=== PATIENT | male | born 1995 | race Hispanic/Latino ===

== ENCOUNTER 2022-07-16 15:03 | Inpatient (IN) | payer OTHER ==
[2022-07-16] MEDS: MEPERIDINE HCL 25 MG/ML SYR ONE ×2 (10:25→20:25)
[2022-07-16 15:47] LABS: Hematocrit 36.5 % (39.6-49.0); Lymphocytes % 27.2 % (15.3-44.8); MCV 87.1 fL (80-100); MPV 7.4 fL (7.6-11.3); RBC Red Blood Cell Count 4.19 M/uL (4.33-5.43)
[2022-07-16 15:48] LABS: Urine Blood Negative (Negative); Urine Glucose Negative (Negative); Urine Protein Negative (Negative)
[2022-07-16 16:06] LABS: Albumin 3.4 g/dL (3.4-5.0); Bilirubin Total 0.3 mg/dL (0.2-1.0); Potassium 3.9 mmol/L (3.5-5.1); Protein, Total 8.3 g/dL (6.4-8.2)
[2022-07-16 16:12] LABS: Urine Mucus 1+ /HPF (None Seen); Urine RBC <5 /HPF (None Seen)
[2022-07-16] MEDS ORDERED: NA CHLORIDE 0.9% 1,000 ML ONE (16:12)
[2022-07-16] MEDS ORDERED: ONDANSETRON 4 MG/2 ML VIAL ONE ×3 (16:12→20:24)
--- NOTE | 2022-07-16 16:43 | RAD REPORT ---
EXAM DESCRIPTION: CT - Abdomen Pelvis W Contrast - 07/16/2022 4:31 pm CLINICAL HISTORY: Abdominal pain/right lower quadrant pain COMPARISON: none. TECHNIQUE: Computed axial tomography of the abdomen pelvis was obtained. 100 cc Isovue-300 was admin istered intravenously. Oral contrast was not requested which limits evaluation of bowel and appendix All CT scans are performed using dose optimization technique as appropriate and may include automated exposure control or mA/KV adjustment according to patient size. FINDINGS: The liver, spleen, pancreas, adrenal and kidneys appear unremarkable. There is no evidence of diverticulitis. The appendix extends medially from the cecum and is thickened. Stranding within adjacent fat. 3.7 kell timeter low-density mass is present within this region probably abscess. IMPRESSION: Patient likely has appendicitis with periappendiceal abscess
--- NOTE | 2022-07-16 16:54 | EDPHYS ---
Physician Documentation [facility] Name: Abrahan Ramírez Age: 26 yrs Sex: Male : 1995 Arrival Date: 07/16/2022 Time: 15:04 Bed 13 Private MD: ED Physician Hermila Wiggins HPI: 07/16 15:43 This 26 yrs old Male presents to ER via Ambulatory with complaints of kb Abdominal Pain, Nausea, Fever, Urinary Problem. 15:43 The patient presents with abdominal pain right lower quadrant. Onset: The kb symptoms/episode began/occurred 5 day(s) ago. The symptoms do not radiate. Associated signs and symptoms: Pertinent positives: fever, nausea. The symptoms are described as constant. Modifying factors: The symptoms are alleviated by nothing, the symptoms are aggravated by pressure. Severity of pain: At its worst the pain was moderate in the emergency department the pain has improved mildly. The patient has not experienced similar symptoms in the past. The patient has been recently seen by a physician: the patient's primary care provider, with similar presenting complaints, and was sent to the [facility] Emergency Department for further evaluation. Pt reports lower abd pain, nausea, fever up to 102, difficulty urinating, and chills since . States pain is a little better today, went to [facility] and was sent here to rule out appendicitis. Historical: - Allergies: 15:19 No Known Allergies; ph - PMHx: 15:19 None; ph - PSHx: 15:19 None; ph - Immunization history:: Adult Immunizations unknown. - Social history:: Smoking status: Patient reports the use of cigarette tobacco products, denies chronic smoking, but will smoke occasionally. ROS: 15:44 Respiratory: Negative for shortness of breath, cough, wheezing, and pleuritic chest kb pain. 15:44 Constitutional: Positive for chills, fever. 15:44 Abdomen/GI: Positive for abdominal pain, nausea. 15:44 : Positive for difficulty urinating. 15:44 All other systems are negative. Exam: 15:44 Constitutional: This is a well developed, well nourished patient who is awake, alert, kb and in no acute distress. Head/Face: Normocephalic, atraumatic. ENT: Moist Mucous membranes Cardiovascular: Regular rate and rhythm with a normal S1 and S2. No gallops, murmurs, or rubs. No pulse deficits. Respiratory: Respirations even and unlabored. No increased work of breathing. Talking in full sentences Skin: Warm, dry with normal turgor. Normal color. MS/ Extremity: Pulses equal, no cyanosis. Neurovascular intact. Full, normal range of motion. Neuro: Awake and alert, GCS 15, oriented to person, place, time, and situation. Moves all extremities. Normal gait. Psych: Awake, alert, with orientation to person, place and time. Behavior, mood, and affect are within normal limits. 15:44 Abdomen/GI: Inspection: abdomen appears normal, Bowel sounds: normal, in all quadrants, Palpation: soft, in all quadrants, moderate abdominal tenderness, in the right lower quadrant. Vital Signs: 15:13 BP 112 / 72; Pulse 79; Resp 19; Temp 99.4; Pulse Ox 100% on R/A; Weight 98.88 kg; ph Height 5 ft. 6 in. (167.64 cm); 16:00 BP 126 / 66; Pulse 84; Resp 17; Pulse Ox 99% on R/A; tp1 17:00 BP 104 / 65; Pulse 75; Resp 16; Pulse Ox 99% on R/A; tp1 15:13 Body Mass Index 35.19 (98.88 kg, 167.64 cm) ph Procedures: 15:42 Peripheral line: by aseptic technique a peripheral line was placed in the right antecubital vein. MDM: 15:30 Patient medically screened. 15:43 Data reviewed: vital signs, nurses notes. Data interpreted: Pulse oximetry: on room air kb is 100 %. Interpretation: normal. 16:47 Physician consultation: Luke Garcia MD was called at 16:47, regarding consult, kb patient's condition, awaiting callback. 16:52 Counseling: I had a detailed discussion with the patient and/or guardian regarding: the historical points, exam findings, and any diagnostic results supporting the discharge/admit diagnosis, lab results, radiology results, the need for further work-up and treatment in the hospital. Physician consultation: Luke Garcia MD was contacted at 16:52, regarding consult, patient's condition, and will see patient in OR. 07/16 15:30 Order name: CBC with Diff; Complete Time: 15:49 kb 07/16 15:30 Order name: CMP; Complete Time: 16:08 kb 07/16 15:30 Order name: Lipase; Complete Time: 16:08 kb 07/16 15:30 Order name: Urine Microscopic Only; Complete Time: 16:24 kb 07/16 15:48 Order name: Urine Dipstick-Ancillary; Complete Time: 15:49 EDMS 07/16 16:56 Order name: SARS RAPID kb 07/16 15:30 Order name: CT Abd/Pelvis - IV Contrast Only; Complete Time: 16:46 kb 07/16 15:30 Order name: IV Saline Lock; Complete Time: 15:52 kb 07/16 15:30 Order name: Labs collected and sent; Complete Time: 15:52 kb 07/16 15:30 Order name: Urine Dipstick-Ancillary (obtain specimen); Complete Time: 15:53 kb Administered Medications: 16:08 Drug: NS 0.9% 1000 ml Route: IV; Rate: 1 bolus; Site: right antecubital; tp1 17:28 Follow up: IV Status: Infusion continued upon admission tp1 16:09 Drug: Zofran (Ondansetron) 4 mg Route: IVP; Site: right antecubital; tp1 16:40 Follow up: Response: Nausea is decreased tp1 17:09 Drug: morphine 4 mg Route: IVP; Infused Over: 4 mins; Site: right antecubital; tp1 17:28 Follow up: Response: Medication administered at discharge. tp1 Disposition: 07/17 07:35 STAFF ATTESTATION: The patient's history, exam findings, diagnostics and a summary of sd2 any interventions or procedures was reviewed in detail with the ED YOCASTA. I confirm the diagnosis as documented by the YOCASTA and I agree with the care plan articulated in the disposition section with regards to our discussion of the patient's case. Hermila Wiggins MD. Disposition Summary: 07/16/22 16:53 Hospitalization Ordered Provider: Luke Garcia Condition: Stable kb Problem: new kb Symptoms: are unchanged kb Bed/Room Type: Standard kb Hospitalization Status: Inpatient Admission(07/16/22 17:19) kb Location: Telemetry/MedSurg (Inpatient)(07/16/22 17:19) kb Room Assignment: (07/16/22 17:19) kb Diagnosis - Acute appendicitis with localized peritonitis kb Forms: - Medication Reconciliation Form kb - SBAR form kb Signatures: Dispatcher [employer] EDCori Adan FNP-C FNP-Ckb Hall, Patricia RN RN Jannette Ricks RN RN tp1 Hermila Wiggins MD MD sd2 Corrections: (The following items were deleted from the chart) 07/16 17: 16:53 Observation kb kb 16:53 Operating Room kb kb 16:53 kb kb
--- NOTE | 2022-07-16 16:54 | ER ---
Nurse's Notes [facility] Name: Abrahan Ramírez Age: 26 yrs Sex: Male : 1995 Arrival Date: 07/16/2022 Time: 15:04 Bed 13 [facility] MD: Diagnosis: Acute appendicitis with localized peritonitis Presentation: 07/16 15:13 Chief complaint: Patient states: Cold sweats, R sided abdominal pain and difficulty ph urinating, started , fever w/ TMAX of 102. Coronavirus screen: Vaccine status: Patient reports receiving the 2nd dose of the covid vaccine. Ebola Screen: No symptoms or risks identified at this time. Initial Sepsis Screen: Does the patient meet any 2 criteria? No. Patient's initial sepsis screen is negative. Does the patient have a suspected source of infection? No. Patient's initial sepsis screen is negative. Risk Assessment: Do you want to hurt yourself or someone else? Patient reports no desire to harm self or others. Onset of symptoms was July 16, 2022. 15:13 Method Of Arrival: Ambulatory ph 15:13 Acuity: ISAAC 3 ph Historical: - Allergies: 15:19 No Known Allergies; ph - PMHx: 15:19 None; ph - PSHx: 15:19 None; ph - Immunization history:: Adult Immunizations unknown. - Social history:: Smoking status: Patient reports the use of cigarette tobacco products, denies chronic smoking, but will smoke occasionally. Screenin:00 Abuse screen: Denies threats or abuse. Denies injuries from another. Nutritional tp1 screening: No deficits noted. Tuberculosis screening: No symptoms or risk factors identified. Fall Risk No fall in past 12 months (0 pts). No secondary diagnosis (0 pts). IV access (20 points). Ambulatory Aid- None/Bed Rest/Nurse Assist (0 pts). Gait- Normal/Bed Rest/Wheelchair (0 pts) Mental Status- Oriented to own ability (0 pts). Assessment: 16:00 General: Appears in no apparent distress. uncomfortable, Behavior is calm, cooperative. tp1 Pain: Complains of pain in right lower quadrant Pain radiates to abdomen Pain currently is 5 out of 10 on a pain scale. Quality of pain is described as stabbing, Pain began 2-3 days ago. Is continuous. Neuro: Level of Consciousness is awake, alert, obeys commands, Oriented to person, place, time, situation, Reports headache mind fog . Cardiovascular: Patient's skin is warm and dry. Respiratory: Airway is patent Respiratory effort is even, unlabored. GI: Abdomen is flat, non-distended, Abd is soft Abd is non tender in right lower quadrant Reports anorexia, nausea, Patient currently denies diarrhea, vomiting. : Reports pain with urination. EENT: No signs and/or symptoms were reported regarding the EENT system. Derm: Skin is pink, warm \T\ dry. Musculoskeletal: Circulation, motion, and sensation intact. 17:00 Reassessment: Patient appears in no apparent distress at this time. Patient is alert, tp1 oriented x 3, equal unlabored respirations, skin warm/dry/pink. denies nausea. Vital Signs: 15:13 BP 112 / 72; Pulse 79; Resp 19; Temp 99.4; Pulse Ox 100% on R/A; Weight 98.88 kg; ph Height 5 ft. 6 in. (167.64 cm); 16:00 BP 126 / 66; Pulse 84; Resp 17; Pulse Ox 99% on R/A; tp1 17:00 BP 104 / 65; Pulse 75; Resp 16; Pulse Ox 99% on R/A; tp1 15:13 Body Mass Index 35.19 (98.88 kg, 167.64 cm) ph ED Course: 15:04 Patient arrived in ED. mr 15:08 [facility] kb 15:08 Hermila Wiggins MD is Attending Physician. kb 15:19 Triage completed. ph 15:19 Arm band placed on. ph 15:51 Jannette Ricks, [place] is Primary Nurse. tp1 15:53 Urine Microscopic Only Sent. dh3 16:00 Inserted saline lock: 20 gauge in right antecubital area, using aseptic technique. tp1 ,using aseptic technique. inserted by Yvonne DAVILA Blood collected. 16:10 Patient has correct armband on for positive identification. Bed in low position. Call tp1 light in reach. 16:33 CT Abd/Pelvis - IV Contrast Only In Process Unspecified. EDMS 16:53 Luke Garcia MD is Hospitalizing Provider. kb 17:26 No provider procedures requiring assistance completed. Patient admitted, IV remains in tp1 place. Administered Medications: 16:08 Drug: NS 0.9% 1000 ml Route: IV; Rate: 1 bolus; Site: right antecubital; tp1 17:28 Follow up: IV Status: Infusion continued upon admission tp1 16:09 Drug: Zofran (Ondansetron) 4 mg Route: IVP; Site: right antecubital; tp1 16:40 Follow up: Response: Nausea is decreased tp1 17:09 Drug: morphine 4 mg Route: IVP; Infused Over: 4 mins; Site: right antecubital; tp1 17:28 Follow up: Response: Medication administered at discharge. tp1 Medication: 17:27 VIS not applicable for this client. tp1 Outcome: 16:53 Decision to Hospitalize by Provider. kb 17:27 Admitted to OR accompanied by nurse, via wheelchair, Report called to OR nurse tp1 17:27 Condition: good 17:27 Discharge instructions given to patient, Instructed on the need for admit, Demonstrated understanding of instructions. 17:28 Patient left the ED. tp1 Signatures: Dispatcher [employer] EDMS Cori Tenorio, BLUEBERRY GROWER-C BLUEBERRY GROWER-Shania Abreu Elena Dsouza, RN RN Christina Salgado Jannette Dean, RN RN tp1
[2022-07-16] MEDS ORDERED: MORPHINE 4 MG/ML SYR ONE (17:14)
[2022-07-16] MEDS ORDERED: PIPER TAZO 3.375 GM in NA CHLORIDE 0.9% 100 ML IV ONE ×4 (17:15)
[2022-07-16] MEDS ORDERED: propofoL 200 MG/20 ML VIAL IV ONE (17:30)
[2022-07-16] MEDS ORDERED: MIDAZOLAM HCL 2 MG/2 ML INJ ONE (17:31)
[2022-07-16] MEDS ORDERED: LIDOCAINE 1% MPF 5 ML VIAL ONE (17:31)
[2022-07-16] MEDS ORDERED: GLYCOPYRROLATE 0.2 MG/ML SYR ONE (17:31)
[2022-07-16] MEDS ORDERED: FENTANYL CITR 100 MCG/2 ML ONE (17:31)
[2022-07-16] MEDS ORDERED: dexAMETHasone 4 MG/ML VIAL ONE (17:32)
[2022-07-16] MEDS ORDERED: KETOROLAC 30 MG/ML INJ ONE (17:32)
[2022-07-16] MEDS ORDERED: MORPHINE 10 MG/ML VIAL ONE (17:32)
[2022-07-16] MEDS ORDERED: ROCURONIUM 50 MG/5 ML VIAL IV ONE ×2 (17:33→19:02)
[2022-07-16 17:37] LABS: SARS-CoV-2 Antigen Rapid Res Negative (Negative)
[2022-07-16] MEDS ORDERED: BUPIVACAINE 0.25% PF 10 ML VIAL ONE (17:37)
[2022-07-16] MEDS ORDERED: NA CIT/CITRIC AC 30 ML ORAL UDC ONE (17:38)
[2022-07-16] MEDS ORDERED: Ringers Lactate 1,000 ML IV ONE (17:38)
--- NOTE | 2022-07-16 19:54 | P.OP ---
Distillery Manager: BRAXTON KELSEY Preoperative diagnosis: Perforated Appendicitis with periappendiceal abscess Postoperative diagnosis: Perforated Appendicitis with periappendiceal abscess Primary procedure: Laparoscopic Appendectomy Secondary procedure: Laparoscopic Adhesiolysis > 1 hour Anesthesia: GETA + Local Estimated blood loss: <50cc Specimen: appendix Findings: rectum / small bowel firmly adherant to appendix, abscess Complications: None Drain(s): ADÁN drain Transferred to: Recovery Room Condition: Good
[2022-07-16] MEDS ORDERED: MORPHINE 4 MG/ML SYR IV PRN (20:00)
[2022-07-16] MEDS: HYDROMORPHONE HCL 1 MG/ML INJ ONE ×2 (20:15→20:20)
[2022-07-16] MEDS: INSULIN -REGULAR HUMAN 50 UNIT/0.5 ML ML SQ SCH (21:00)
[2022-07-16] MEDS ORDERED: HYDROMORPHONE HCL 1 MG/ML INJ ONE (21:03)
[2022-07-16] MEDS: D5.45NS W/KCL 20MEQ 1,000 ML IV SCH (21:34)
[2022-07-16] MEDS: HYDROMORPHONE HCL 1 MG/ML INJ IV PRN (23:05)
[2022-07-17 00:17] VITALS: BMI 35.0
[2022-07-17] MEDS: PIPER TAZO 3.375 GM in NA CHLORIDE 0.9% 100 ML IV SCH ×3 (00:20→17:55)
--- NOTE | 2022-07-17 03:22 | OP ---
Date of Procedure: 07/16/2022 Surgeon: Luke Garcia MD, Bacteriologist Soil: Shania Cosby. Preoperative Diagnosis: Perforated appendicitis with periappendiceal abscess. Postoperative Diagnosis: Perforated appendicitis with periappendiceal abscess. Procedures Performed: 1.Laparoscopic appendectomy. 2.Laparoscopic adhesiolysis, greater than 1 hour. Anesthesia: General endotracheal plus local with 0.25% Marcaine. Estimated Blood Loss: Less than 5 cc. Specimen: Appendix. Findings: 1.Significant inflammatory change to the right lower quadrant. 2.Rectum adhered to right peritoneal wall as well as appendiceal abscess. 3.Small bowel, near ileocecal valve also adherent to appendix and periappendiceal abscess. 4.Approximately 3 cm periappendiceal abscess. 5.Significant inflammatory change, inflammatory rind of appendix with obvious perforation. Complications: None. Drains: A 10 mm flat ADÁN drain placed in the right colic gutter. Disposition: The patient was transferred to recovery room in good condition. Procedure In Detail: After informed consent was obtained, patient was prepped and draped in the usua l sterile fashion. After adequate anesthesia was achieved, an infraumbilical area was anesthetized w ith 0.25% Marcaine and sharply incised. A 5 mm trocar was placed under direct visualization without any complication. Insufflation was obtained to 15 mmHg at this time. There was no injury to vital s tructures upon entry into the abdomen. Additional trocar was placed in the supraumbilical position, this was a 5 mm trocar placed under direct visualization without evidence of any complication. The u mbilical trocar was then upsized to 12 mm under direct visualization without any complication. Addit ional trocar was placed in the right lower quadrant, similarly anesthetized, sharply incised, and a 5 mm trocar was placed under direct visualization. The patient was positioned head down, tilted, righ t side up, and graspers were brought on the field. Significant inflammatory changes were appreciated as above. The rectum was firmly adherent to the right pelvic sidewall in multiple areas. There was evidence of diverticulum on the right colon as well as extending to the sigmoid colon. Additionally, the small bowel was also firmly adherent to the same said right colon as well as the appendix as wel l as rectum/rectosigmoid colon. The peanut was brought in and a gentle blunt dissection was initiate d using hydrodissection as well to separate the structures. The tissues were quite firm and difficul t, requiring an extensive meticulous adhesiolysis using a combination of blunt dissection as well as LigaSure device to separate the tissue planes. Ultimately, the appendix was from the surro unding structures. The bowel was inspected without any evidence of obvious bowel injury including sm all bowel and the colon as described. A small window was created at the confluence of the cecum. Th ere was significant thick inflammatory rind here. As such I opted to bring in the 60 cisse load on the Endo-KODI stapler. I used the LigaSure to take down the mesoappendix first and then I fired the Endo -KODI cisse load across the base of the appendix with good approximation of tissues and no leakage from the staple line. At this point, the appendix was then placed in Endo Catch bag, removed through the umbilical trocar, and sent off for pathologic examination. The abdomen was then copiously irrigated with approximately 1.5 L to 2 L of warm saline. The patient was positioned in multiple positions to allow for complete irrigation. The abscess had been completely drained at this point. As such, I carter ctioned out the remaining effluent and irrigated multiple times. I suctioned out the remaining pelvi s. I inspected the bowel one last time. There was no evidence of bleeding or leakage. I then opted to bring a 10 mm flat ADÁN drain out through the right lower quadrant incision. This was placed in th e right colic gutter along the staple line and running along the right colic gutter. I then brought the omentum and tucked it in over the top of this. I then secured the drain to the skin using a 3-0 nylon suture and I closed the umbilical trocar site using a Thanh-Polo suture passer with 0 Vicr yl in interrupted fashion with good approximation of tissues. I then desufflated the abdomen under d irect visualization without evidence of complication, removed the remaining trocar, copiously irrigat ed all skin incisions and closed them with interrupted raiza. A sterile dressing was placed over t op. The patient tolerated the procedure without evidence of any complication and was transferred stevie in good condition. All counts were correct at the end of the case. TK/ESTEPHANIAL Voice ID: [id number] Report ID: [id number]
--- NOTE | 2022-07-17 03:46 | HP ---
Date of Admission: 07/16/2022 Brief History Of Present Illness: The patient is a 26-year-old male with a past medical his tory of diverticulitis who had a colonoscopy in [place] 2 months ago, who presents with new onset righ t lower quadrant abdominal pain, which began 5 days ago and got severe significant at that point, but he noted that it got somewhat better shortly thereafter. He had fever, nausea, vomiting at home and the symptoms recurred a day or 2 ago and got progressively worse, now associated with a fever up to 102. He states the pain was unrelenting. It was originally in the periumbilical, now more located i n the right lower quadrant area. He has never had similar episodes before in the past prior to 5 day s ago. No sick contacts. He did travel to [place] 2 months ago. No new food exposures. Allergies: NO KNOWN DRUG ALLERGIES. Past Medical History: Diverticulitis. Past Surgical History: He has had a colonoscopy only. Social History: He denies recreational drug use and admits to smoking cigarettes about half a pack t o a pack per day for several years. Review of Systems: He has subjective chills as well. Ten-point review of systems continued as otherwise negative. Physical Examination: At the time of examination: Vital Signs: His blood pressure 112/72, pulse 79, respiratory rate 19, temperature 99.4, pulse ox sh owed oxygen level of 100% on room air. BMI 35. General: He is awake, alert, and oriented. Psychiatric: He is appropriate and conversive. HEENT: Normocephalic. Sclerae anicteric. Mucous membranes are moist. Oropharynx clear. Neck: Supple without JVD. Chest: Normal expansion and excursion. Cardiovascular: Regular rate and rhythm. Pulmonary: Clear to auscultation bilaterally. Abdomen: Soft with positive right lower quadrant tenderness to palpation. Positive focal peritoniti s. Also significant peritonitis in the infraumbilical area with positive voluntary guarding. Extremities: No clubbing, cyanosis, edema. Skin: Warm and dry. Laboratory Data: Reveals a white blood cell count of 10.9, hemoglobin 12.3, hematocrit 35.6, platele t count was 389, neutrophils 60%. Sodium 136, potassium 3.9, chloride 104, carbon dioxide 28, BUN 16 , creatinine 1.0, glucose 91, total bilirubin 0.3 direct. AST 13, ALT 50, alkaline phosphatase 107, lipase is 36. UA was essentially negative. COVID was negative. He had a CT scan performed of the a bdomen and pelvis officially read as patient likely has appendicitis with periappendiceal abscess. T he appendix extends medially from the cecum as thickened stranding with the adjacent fat 3 cm low-den sity mass present within this region, probably an abscess. Assessment And Plan: This is a 26-year-old male who comes in with signs and symptoms of likely perfo rated appendicitis or acute appendicitis with periappendiceal abscess. 1.IV fluid hydration. 2.Antibiotic coverage with Zosyn 3.375. 3.I have explained the risks, benefits, and alternatives of laparoscopic possible open appendectomy including, but not limited to bleeding, infection, damage to internal organs, intestines, need for fu rther operations, possible need for open surgery, possible colostomy creation, blood clot, stroke, he art attack, need for further operation and procedures, future hernias, trouble with anesthesia and ot her unforeseen or unanticipated complications can sometimes emerge. The patient displayed understand ing of the above stated plan and agreed to proceed as indicated. All questions were answered. CAMERON/WILIAM Voice ID: [id number]
[2022-07-17 03:59] LABS: Hematocrit 35.9 % (39.6-49.0); Lymphocytes % 8.2 % (15.3-44.8); MCV 86.7 fL (80-100); MPV 7.5 fL (7.6-11.3); RBC Red Blood Cell Count 4.14 M/uL (4.33-5.43)
[2022-07-17 04:07] LABS: Bilirubin Direct 0.1 mg/dL (0-0.2); Bilirubin Total 0.4 mg/dL (0.2-1.0); Magnesium 2.1 mg/dL (1.8-2.4); Phosphorus 3.8 mg/dL (2.5-4.9); Potassium 4.6 mmol/L (3.5-5.1); Protein, Total 7.6 g/dL (6.4-8.2)
[2022-07-17] MEDS: HYDROMORPHONE HCL 1 MG/ML INJ IV PRN ×2 (04:16→13:36)
[2022-07-17] MEDS: INSULIN -REGULAR HUMAN 50 UNIT/0.5 ML ML SQ SCH ×4 (07:30→21:00)
[2022-07-17] MEDS: HYDROCODONE/APAP 7.5/325 MG TAB PO PRN ×3 (07:38→21:32)
[2022-07-17] MEDS: D5.45NS W/KCL 20MEQ 1,000 ML IV SCH ×2 (07:39→17:55)
[2022-07-17] MEDS ORDERED: PHENOL 1.4% ORAL SPRAY 180ML MM PRN (08:30)
[2022-07-17] MEDS: ENOXAPARIN 40 MG/0.4 ML SQ SCH (08:34)
[2022-07-17] MEDS: ONDANSETRON 4 MG/2 ML VIAL IV PRN (11:43)
[2022-07-18] MEDS: PIPER TAZO 3.375 GM in NA CHLORIDE 0.9% 100 ML IV SCH ×3 (01:21→15:44)
[2022-07-18 03:54] LABS: Magnesium 2.2 mg/dL (1.8-2.4); Phosphorus 3.4 mg/dL (2.5-4.9)
[2022-07-18] MEDS: D5.45NS W/KCL 20MEQ 1,000 ML IV SCH ×2 (05:44→15:43)
[2022-07-18] MEDS: HYDROCODONE/APAP 7.5/325 MG TAB PO PRN ×4 (05:49→18:18)
[2022-07-18] MEDS: INSULIN -REGULAR HUMAN 50 UNIT/0.5 ML ML SQ SCH ×4 (07:30→21:00)
[2022-07-18 08:14] LABS: Absolute Lymphocytes (CBC) 2.6 K/uL (0.7-4.9); MPV 7.3 fL (7.6-11.3); RBC Red Blood Cell Count 3.79 M/uL (4.33-5.43)
[2022-07-18] MEDS: ENOXAPARIN 40 MG/0.4 ML SQ SCH (08:41)
--- NOTE | 2022-07-18 18:55 | P.PN ---
Subjective Date of Service: 07/18/22 Chief Complaint: s/p laparoscopic appendectomy for perforated appendicitis Subjective: Improving (patient has no gas or BM,) no new complaints Physical Examination - Vital Signs Temperature: 98.5 F Blood Pressure: 97/60 Pulse: 81 Respirations: 18 Pulse Ox (%): 97 - Physical Exam General: Alert, In no apparent distress, Cooperative HEENT: Mucous membr. moist/pink Respiratory: Clear to auscultation bilaterally, Normal air movement Cardiovascular: Regular rate/rhythm Gastrointestinal: Other (soft, mild appropriate TTP, ND, ADÁN serosang, incisions clean and dry) Neurological: Normal speech Assessment And Plan - Current Problems (Diagnosis) (1) Acute perforated appendicitis Current Visit: Yes Status: Acute Plan: Patient is s/p laparoscopic appendectomy on 07-17-2022 - continue current pain regime - continue IV hydration - serial exams - continue medical post-op management - ambulate with assist - continue clear liquid diet
[2022-07-19] MEDS: PIPER TAZO 3.375 GM in NA CHLORIDE 0.9% 100 ML IV SCH ×3 (01:30→17:21)
[2022-07-19] MEDS: D5.45NS W/KCL 20MEQ 1,000 ML IV SCH ×3 (01:39→22:28)
[2022-07-19] MEDS: HYDROCODONE/APAP 7.5/325 MG TAB PO PRN (05:07)
[2022-07-19 05:35] LABS: Absolute Lymphocytes (CBC) 2.2 K/uL (0.7-4.9); Hematocrit 36.9 % (39.6-49.0); Lymphocytes % 25.4 % (15.3-44.8); MCV 87.6 fL (80-100); MPV 7.2 fL (7.6-11.3); RBC Red Blood Cell Count 4.21 M/uL (4.33-5.43)
[2022-07-19 05:56] LABS: Magnesium 2.3 mg/dL (1.8-2.4); Potassium 3.9 mmol/L (3.5-5.1)
[2022-07-19] MEDS ORDERED: POTASSIUM CL SA 10 MEQ TAB PO ONE (05:59)
[2022-07-19] MEDS: INSULIN -REGULAR HUMAN 50 UNIT/0.5 ML ML SQ SCH ×4 (07:30→20:51)
[2022-07-19] MEDS: HYDROMORPHONE HCL 1 MG/ML INJ IV PRN ×4 (08:39→22:35)
[2022-07-19] MEDS: ONDANSETRON 4 MG/2 ML VIAL IV PRN ×2 (08:39→12:34)
[2022-07-19] MEDS: ENOXAPARIN 40 MG/0.4 ML SQ SCH (09:00)
--- NOTE | 2022-07-19 11:03 | RAD REPORT ---
EXAM DESCRIPTION: CTAbdomen Pelvis W Contrast - 07/19/2022 10:34 am CLINICAL HISTORY: Abdominal pain. hx perf appendicitis status post lap appy COMPARISON: Abdomen Pelvis W Contrast dated 07/16/2022 TECHNIQUE: Biphasic CT imaging of the abdomen and pelvis was performed with 100 ml non-ionic IV cont rast. All CT scans are performed using dose optimization technique as appropriate and may include automated exposure control or mA/KV adjustment according to patient size. FINDINGS: Mild linear atelectasis is present in both posterior lung bases.Trace right pleural effusi on. Small hiatal hernia. The liver, spleen, pancreas, adrenal glands and kidneys are within normal limits. Right-sided drain is in place in the right lower quadrant. There is mild inflammatory change in the r ight lower quadrant seen. No large well-formed abscess seen. Mild free air from recent surgery seen i n the abdomen. Moderate retained stool is seen the colon. No evidence of significant lymphadenopath y. No suspicious bony findings. IMPRESSION: Surgical drain is in place in the right lower quadrant. There is mild inflamed fat seen in the region without a well-formed abscess evident.
[2022-07-20] MEDS: PIPER TAZO 3.375 GM in NA CHLORIDE 0.9% 100 ML IV SCH ×3 (00:21→16:16)
[2022-07-20] MEDS: HYDROMORPHONE HCL 1 MG/ML INJ IV PRN ×3 (03:44→20:02)
[2022-07-20 05:50] LABS: Absolute Lymphocytes (CBC) 1.8 K/uL (0.7-4.9); Hematocrit 34.4 % (39.6-49.0); Lymphocytes % 27.8 % (15.3-44.8); MCV 86.4 fL (80-100); MPV 7.3 fL (7.6-11.3); RBC Red Blood Cell Count 3.98 M/uL (4.33-5.43)
[2022-07-20 05:59] LABS: Magnesium 2.3 mg/dL (1.8-2.4); Phosphorus 4.7 mg/dL (2.5-4.9)
[2022-07-20] MEDS: INSULIN -REGULAR HUMAN 50 UNIT/0.5 ML ML SQ SCH ×4 (07:30→20:03)
[2022-07-20] MEDS: ENOXAPARIN 40 MG/0.4 ML SQ SCH (08:46)
[2022-07-20] MEDS: D5.45NS W/KCL 20MEQ 1,000 ML IV SCH ×2 (08:46→18:34)
--- NOTE | 2022-07-20 09:53 | P.PN ---
Subjective Date of Service: 07/19/22 Chief Complaint: s/p laparoscopic appendectomy for perforated appendicitis Patient complained of more abdominal tenderness and emesis Physical Examination - Vital Signs Temperature: 97.1 F Blood Pressure: 101/56 Pulse: 57 Respirations: 17 Pulse Ox (%): 98 - Physical Exam General: Alert, In no apparent distress, Cooperative Respiratory: Clear to auscultation bilaterally, Normal air movement Cardiovascular: Regular rate/rhythm Gastrointestinal: Other (soft, more tenderness on exam today, ADÁN serosang, minimally tympanic) Integumentary: No rashes, No breakdown Neurological: Normal speech Assessment And Plan - Current Problems (Diagnosis) (1) Acute perforated appendicitis Current Visit: Yes Status: Acute Plan: Patient is s/p laparoscopic appendectomy on 07-17-2022 - continue current pain regime - continue IV hydration - serial exams - continue medical post-op management - ambulate with assist - NPO - CT scan of abdomen
--- NOTE | 2022-07-20 09:55 | P.PN ---
Subjective Date of Service: 07/20/22 Chief Complaint: s/p laparoscopic appendectomy for perforated appendicitis Patient states pain much improved, had some hiccups which he feels caused his nausea, but improving, passing gas, ambulatory Physical Examination - Vital Signs Temperature: 97.1 F Blood Pressure: 101/56 Pulse: 57 Respirations: 17 Pulse Ox (%): 98 - Physical Exam General: Alert, In no apparent distress, Cooperative Respiratory: Clear to auscultation bilaterally, Normal air movement Cardiovascular: Regular rate/rhythm Gastrointestinal: Other (soft, improved mild appropriate TTP, ND, incisions clean and dry, ADÁN more serous) Assessment And Plan - Current Problems (Diagnosis) (1) Acute perforated appendicitis Current Visit: Yes Status: Acute Plan: Patient is s/p laparoscopic appendectomy on 07-17-2022 - continue current pain regime - continue IV hydration - serial exams - continue medical post-op management - ambulate with assist - start sips of clears today - CT scan of abdomen noted no collections, normal post op appearance
[2022-07-20] MEDS: HYDROCODONE/APAP 7.5/325 MG TAB PO PRN (16:16)
[2022-07-21] MEDS: ONDANSETRON 4 MG/2 ML VIAL IV PRN (00:04)
[2022-07-21] MEDS: PIPER TAZO 3.375 GM in NA CHLORIDE 0.9% 100 ML IV SCH ×3 (00:04→16:18)
[2022-07-21] MEDS: D5.45NS W/KCL 20MEQ 1,000 ML IV SCH ×4 (01:00→21:00)
[2022-07-21 06:15] LABS: Hematocrit 35.2 % (39.6-49.0); MCV 86.1 fL (80-100); MPV 6.7 fL (7.6-11.3); RBC Red Blood Cell Count 4.09 M/uL (4.33-5.43)
[2022-07-21 06:33] LABS: Magnesium 2.4 mg/dL (1.8-2.4); Phosphorus 4.2 mg/dL (2.5-4.9); Potassium 4.1 mmol/L (3.5-5.1)
[2022-07-21] MEDS: INSULIN -REGULAR HUMAN 50 UNIT/0.5 ML ML SQ SCH ×5 (07:30→20:43)
[2022-07-21] MEDS: ENOXAPARIN 40 MG/0.4 ML SQ SCH (08:47)
[2022-07-21] MEDS: HYDROMORPHONE HCL 1 MG/ML INJ IV PRN ×2 (16:24→23:14)
[2022-07-21 22:26] VITALS: O2SAT 98
[2022-07-22] MEDS: PIPER TAZO 3.375 GM in NA CHLORIDE 0.9% 100 ML IV SCH ×2 (01:06→09:31)
[2022-07-22 04:45] LABS: Absolute Lymphocytes (CBC) 2.6 K/uL (0.7-4.9); Hematocrit 36.1 % (39.6-49.0); Lymphocytes % 30.5 % (15.3-44.8); MCV 87.4 fL (80-100); MPV 7.5 fL (7.6-11.3); RBC Red Blood Cell Count 4.13 M/uL (4.33-5.43)
[2022-07-22 04:58] LABS: Potassium 3.9 mmol/L (3.5-5.1)
[2022-07-22] MEDS: D5.45NS W/KCL 20MEQ 1,000 ML IV SCH (05:52)
[2022-07-22 07:54] VITALS: BP 98/54; TEMP 97.1
[2022-07-22] MEDS: ENOXAPARIN 40 MG/0.4 ML SQ SCH (09:30)
[2022-07-22] MEDS: HYDROMORPHONE HCL 1 MG/ML INJ IV PRN (09:36)
== END 2022-07-22 11:57 | disposition home or self-care (01) | DRG 337 ==
LOC: ER 15:03 → ERHOLD 19:55 → 4TH 20:01
PROVIDERS: ADMIT Surgery; ATTEND Surgery
PROC: 0DNP4ZZ Release Rectum, Percutaneous Endoscopic Approach (ICD-10-PCS; 2022-07-16)
PROC: 0DTJ4ZZ Resection of Appendix, Percutaneous Endoscopic Approach (ICD-10-PCS; 2022-07-16)
PROC: 0DN84ZZ Release Small Intestine, Percutaneous Endoscopic Approach (ICD-10-PCS; principal; 2022-07-16 17:00)
DX: K35.33 Acute appendicitis with perforation, localized peritonitis, and gangrene, with abscess (principal); F17.210 Nicotine dependence, cigarettes, uncomplicated; Z20.822 Contact with and (suspected) exposure to COVID-19
CPT/HCPCS: 36415; 74177; 80048; 80053; 80076; 81003; 81015; 82947; 83690; 83735; 84100; 85025; 87811; 88304; 94010; 94760; 96361; 96374; 96375; 97116; 97161; 99285; J1100; J1170; J1650; J2001; J2175; J2250; J2405; J2543; J2704; J3010; J7030; J7120; Q9967